=== PATIENT | female | born 1950 | race Caucasian/White ===

== ENCOUNTER 2018-05-22 16:43 | Emergency (ER) | payer MEDICARE, OTHER ==
[2018-05-22] MEDS ORDERED: PROCHLORPERAZINE 10 MG/2 ML VIAL IVP STA (17:55)
[2018-05-22] MEDS ORDERED: diphenhydrAMINE INJ 50 MG/ML VIAL IVP STA (17:55)
[2018-05-22] MEDS ORDERED: KETOROLAC 60 MG/2 ML VIAL IVP STA (17:55)
[2018-05-22] MEDS ORDERED: SODIUM CHLORIDE 0.9% 1,000 ML IV ONE (17:55)
--- NOTE | 2018-05-22 18:52 | ED Physician Documentation ---
PD HPI HEADACHE - Stated complaint Stated Complaint: MIGRAINE/NAUSEA - Chief complaint Chief Complaint: Neuro - History obtained from History obtained from: Patient, Family - History of Present Illness Timing - onset: Yesterday Timing - onset during: Rest Timing - duration: Days (2) Timing - details: Gradual onset Pain level max: 8 Pain level now: 8 Location: Front, Back, Right Quality: Throbbing, Aching Associated symptoms: Nausea. No: Fever, Stiff neck, Vomiting, Weakness, Numbness, Syncope, Seizure, Eye pain, Vision changes Review of Systems Constitutional: denies: Fever, Chills Cardiac: denies: Chest pain / pressure Respiratory: denies: Cough GI: reports: Nausea. denies: Vomiting, Diarrhea : denies: Now EGA Skin: denies: Rash Musculoskeletal: denies: Neck pain, Back pain Neurologic: reports: Headache. denies: Focal weakness, Numbness PD PAST MEDICAL HISTORY - Past Medical History Past Medical History: Yes Cardiovascular: Hypertension Neuro: Migraines GI: GERD Musculoskeletal: Osteoarthritis - Past Surgical History Past Surgical History: Yes General: Hiatal hernia repair Ortho: Carpal Tunnel surgery /[employer]: section, Hysterectomy - Present Medications Home Medications: Ambulatory Orders Medication Instructions Recorded Confirmed Albuterol Sulf [Ventolin Hfa 05/22/18 Inhaler] Amitriptyline HCl 100 mg PO 05/22/18 Atorvastatin Calcium 05/22/18 Epinephrine [Epipen 2-Ted] 05/22/18 Fluticasone [Flonase] 05/22/18 05/22/18 Loratadine [Claritin] 05/22/18 Metoprolol Tartrate 05/22/18 Pantoprazole [Protonix] 05/22/18 SUMAtriptan [Imitrex] 05/22/18 Topiramate 05/22/18 amLODIPine [Norvasc] 05/22/18 raNITIdine [Zantac] 05/22/18 - Allergies Allergies/Adverse Reactions: Allergies Allergy/AdvReac Type Severity Reaction Status Date / Time bupropion [From Wellbutrin] Allergy Anxiety Verified 05/22/18 17:00 cefuroxime [From Ceftin] Allergy Hives Verified 05/22/18 17:02 desipramine Allergy Hives Verified 05/22/18 17:02 ibuprofen [From Motrin] Allergy Hives Verified 08/26/18 17:02 indomethacin Allergy Hives Verified 05/22/18 17:02 losartan [From Cozaar] Allergy Hives Verified 05/22/18 17:02 Penicillins Allergy Hives Verified 05/22/18 17:02 vancomycin Allergy Hives Verified 05/22/18 17:02 - Social History Does the pt smoke?: No Smoking Status: Never smoker Does the pt drink ETOH?: No Does the pt have substance abuse?: No - Immunizations Immunizations are current?: Yes - POLST Patient has POLST: No PD ED PE NORMAL - Vitals Vital signs reviewed: Yes - General General: Alert and oriented X 3, Other (appears light sensitive) - HEENT HEENT: PERRL, Moist mucous membranes - Neck Neck: Supple, no meningeal sign - Cardiac Cardiac: RRR, Strong equal pulses - Respiratory Respiratory: No respiratory distress, Clear bilaterally - Abdomen Abdomen: Soft, Non tender, Non distended - Derm Derm: Warm and dry, No rash - Extremities Extremities: No edema, No calf tenderness / cord - Neuro Neuro: Alert and oriented X 3, superintendent measurement 2-12 intact, No motor deficit, No sensory deficit, Normal speech Eye Opening: Spontaneous Motor: Obeys Commands Verbal: Oriented GCS Score: 15 - Psych Psych: Normal mood, Normal affect Results - Vitals Vitals: Vital Signs - 24 hr 05/22/18 05/22/18 16:57 19:18 Temperature 36.2 C L Heart Rate 71 78 Respiratory 20 16 Rate Blood Pressure 148/92 H 157/68 H O2 Saturation 100 97 Oxygen O2 Source Room air PD MEDICAL DECISION MAKING - ED course Complexity details: reviewed results, re-evaluated patient, considered differential, d/w patient ED course: Patient is a 67-year-old female who presents to the emergency department with her usual migraine headache. Given Toradol, Compazine, Benadryl and normal saline. Headache resolved. She requested a home at this time. No evidence of subarachnoid hemorrhage, tumor, mass, aneurysm. Patient counseled regarding signs and symptoms for which I believe and urgent re-evaluation would be necessary. Patient with good understanding of and agreement to plan and is comfortable going home at this time This document was made in part using voice recognition software. While efforts are made to proofread this document, sound alike and grammatical errors may occur. - Sepsis Event Vital Signs: Vital Signs - 24 hr 05/22/18 05/22/18 16:57 19:18 Temperature 36.2 C L Heart Rate 71 78 Respiratory 20 16 Rate Blood Pressure 148/92 H 157/68 H O2 Saturation 100 97 Oxygen O2 Source Room air Departure - Departure Disposition: 01 Home, Self Care Clinical Impression: Migraine Qualifiers: Migraine type: unspecified Status migrainosus presence: without status migrainosus Intractability: not intractable Qualified Code(s): G43.909 - Migraine, unspecified, not intractable, without status migrainosus Condition: Good Instructions: ED Headache Migraine Follow-Up: Shannan Briggs MD [Primary Care Provider] - As Needed Comments: Do not drive tonight. You are to go home and rest. Return if you worsen. Discharge Date/Time: 05/22/18 19:19
[2018-05-22 19:19] VITALS: BP 157/68
== END 2018-05-22 19:19 | disposition home or self-care (01) ==
LOC: ED 16:43
DX: G43.909 Migraine, unspecified, not intractable, without status migrainosus (principal); I10 Essential (primary) hypertension
CPT/HCPCS: 96361; 96374; 96375; 99283; J1200